=== PATIENT | male | born 1955 | race Caucasian/White ===

== ENCOUNTER 2016-11-01 11:43 | Outpatient (CLI) | payer BC ==
[~2016-11-01] VITALS: Ht 182.9 cm; Wt 97.7 kg
--- NOTE | ~2016-11-01 | HEMODYNAMI ---
PATIENT:NARA HARPER MEDICAL RECORD: [id number] : 59 LOCATION:[facility] ADMISSION DATE: 11/01/16 Generatedon:11/01/201616:03 Patient name: NARA HARPER Patient #: [id number] SSN: : 1955 Date of study: 11/01/2016 Page: Of Hemodynamic Procedure Report Patient Data Patient Demographics Procedure consent was obtained First Name: NARA Gender: Male Last Name: LEROY : 1955 [facility] Initial: OPAL Age: 61 year(s) Patient #: [id number] Race: Unknown Additional ID: [id number] Contact details Address: [address] [place] [address] [place] State: [place] City: [place] Zip code: [address] Past Medical History Allergies Allergen Reaction Date Comments Reported Penicillins 10/28/2014 Admission Admission Data Admission Date: 11/01/2016 Admission Time: 11:43 Procedure Procedure Types Cath Procedure Diagnostic Procedure LHC LHC w/Coronaries Miscellaneous Procedures Moderate Sedation up to 15 minutes Procedure Description Procedure Date Procedure Date: 11/01/2016 Procedure Start Time: 15:48 Procedure Staff Name Function Cinthia Nagel RN Nurse Man Olea MD Performing Physician Bela Jenkins RT Scrub Nir Donnelly RT Monitor Procedure Data Cath Procedure Fluoroscopy Diagnostic fluoroscopy Total fluoroscopy Time: 2.3 time: 2.3 min min Diagnostic fluoroscopy Total fluoroscopy dose: 466 dose: 466 mGy mGy Contrast Material Contrast Material Type Amount (ml) Isovue 300 55 Entry Location Entry Primary Successful Side Size Upsize Upsize Entry Closure Kennedy ccessful Closure Location (Fr) 1 (Fr) 2 (Fr) Remarks Device Remarks Radial Right 6 Fr Mechanical artery Short Compression Diagnostic catheters Device Type Used For End Catheter Placement Terumo 5Fr Quinton 110cm Coronary catheter Angiography Procedure Medications Medication Administration Route Dosage Oxygen NC 2 l/min Lidocaine 2% added to field 20 Heparin Flush Bag added to field 2 bags (1000units/500ml NS) 0.9% NaCl I.V. 100 ml/hr Versed I.V. 1 mg Fentanyl I.V. 50 mcg Versed I.V. 1 mg Fentanyl I.V. 50 mcg Versed I.V. 1 mg Fentanyl I.V. 50 mcg Radial Cocktail I.A. 1 syringe (Verapomil 2mg/Nitro 400mcg/Heparin 1500units) Versed I.V. 1 mg Fentanyl I.V. 50 mcg Hemodynamics Rest Heart Rate: 52 (bpm) Pressure Samples Time Site Value (mmHg) Purpose Heart Use Rate(bpm) 15:52 LV 149/94,98 Snapshot 62 15:52 LV 148/19,10 Snapshot 63 Gradients Valve Time Site Site Mean SEP/DFP Peak To Heart Use 1 2 (mmHg) (sec/min) Peak Rate (mmHg) (bpm) Aortic 15:53 LV AO 47 Snapshots Pre Cath Intra NCS Post Cath Vital Signs Time Heart Resp SPO2 NIBP (mmHg) Rhythm Pain Sedation Rate (ipm) (%) Status Level (bpm) 15:40:48 60 16 100 170/90(119) NSR 0 (11) 10(A) , No pain 15:45:08 56 14 94 142/85(124) NSR 0 (11) 10(A) , No pain 15:49:18 56 14 96 146/92(109) NSR 0 (11) 10(A) , No pain 15:53:34 65 17 98 110/80(100) NSR 0 (11) 9(A) , No pain 15:57:36 68 16 96 126/80(101) NSR 0 (11) 10(A) , No pain 16:00:36 59 14 97 138/82(94) NSR 0 (11) 10(A) , No pain Medications Time Medication Route Dose Verified Delivered Reason Notes Effectiveness by by 15:40:47 Oxygen NC 2 l/min Man Buffie used for Lefty Nagel RN procedure 15:40:54 Lidocaine 2% added 20ml Man Man for local to vial Lefty Olea MD anesthetic field 15:41:00 Heparin Flush added 2 bags Man Man used for Bag to Lefty Olea MD procedure (1000units/500ml field NS) 15:41:10 0.9% NaCl I.V. 100 Man Buffie Per ml/hr Lefty Nagel RN physician 15:43:21 Versed I.V. 1 mg Man Buffie for sedation Lefty Nagel RN 15:43:26 Fentanyl I.V. 50 mcg Man Buffie for sedation Lefty Nagel RN 15:47:26 Versed I.V. 1 mg Man Buffie for sedation Lefty Nagel RN 15:47:29 Fentanyl I.V. 50 mcg Man Buffie for sedation Lefty Nagel RN 15:50:27 Radial Cocktail I.A. 1 Man Man for (Verapomil syringe Lefty Olea MD vasodilation 2mg/Nitro 400mcg/Hepari 15:52:57 Versed I.V. 1 mg Man Buffie for sedation Lefty Nagel RN 15:53:02 Fentanyl I.V. 50 mcg Man Buffie for sedation Lefty Nagel RN 15:57:20 Versed I.V. 1 mg Man Man for sedation Lefty Olea MD 15:57:23 Fentanyl I.V. 50 mcg Man Man for sedation Lefty Olea MD Procedure Log Time Note 15:28:47 Nir Donnelly RT (R) (CV) sent for patient. Start room use. 15:28:49 Time tracking: Regular hours 15:28:54 Plan of Care:Hemodynamics will remain stable., Cardiac rhythm will remain stable., Comfort level will be maintained., Respiratory function will remain adequate., Patient/ family verbilizes understanding of procedure., Procedure tolerated without complication., Recovers from procedure without complications.. 15:29:02 Patient received from Pre/Post Procedure Room to [facility] 2 Alert and oriented. Tansferred to table in Supine position. 15:29:25 Correct patient and procedure confirmed by team. 15:29:27 Signed procedure consent form obtained from patient. 15:29:28 ECG and BP/O2 sat monitors applied to patient. 15:29:29 - 15:29:29 Full Disclosure recording started 15:29:33 H&P Date Dictated: 11/01/2016 H&P Addendum completed by physician on day of procedure. (MUST COMPLETE FOR ALL OUTPATIENTS). 15:29:34 Pre-op teaching completed and patient verbalized understanding. ::34 Pre-procedure instructions explained to patient. 15:29:36 Family in waiting room. 15:29:37 Patient NPO since Midnight. 15:29:39 Is the patient allergic to Iodine/contrast media? No. 15:29:44 Is patient on blood thinner?No 15:33:01 Patient diabetic? No. 15:33:02 ----Pre-sedation anethsthesia assessment.---- 15:33:02 - 15:33:05 Previous problem with sedation/anesthesia? No ? 15:33:06 Snore? Yes 15:33:07 Sleep apnea? No 15:33:08 Deviated septum? No 15:33:09 Opens mouth fully? Yes 15:33:11 Sticks out tongue? Yes 15:33:13 Airway obstruction? No ? 15:33:15 Dentures? No ? 15:33:20 Pre procedure: right dorsailis pedis pulse Doppler 15:33:24 Modified Amilcar's test Radial < 7 seconds 15:33:30 Patient pain scale 0/10 no. 15:33:43 Sharps counted by scrub and verified by R.N. 15:33:44 Alarms reviewed by R. N. 15:34:02 Right Radial & Right Groin area was prepped with chlora-prep and draped in sterile fashion 15:34:37 IV patent on arrival in left hand with 0.9% NaCl at O. 15:39:38 Vital chart was started 15:39:38 Baseline sample Acquired. 15:39:44 Rhythm: sinus rhythm 15:40:47 Oxygen 2 l/min NC was administered by Cinthia Nagel RN; used for procedure; 15:40:54 Lidocaine 2% 20ml vial added to field was administered by Man Olea MD ; for local anesthetic; 15:41:00 Heparin Flush Bag (1000units/500ml NS) 2 bags added to field was administered by Man Olea MD; used for procedure; 15:41:10 0.9% NaCl 100 ml/hr I.V. was administered by Cinthia Nagel RN; Per physician; 15:41:26 --------ALL STOP TIME OUT------ 15:41: Physician arrived 15::27 Final Timeout: patient, procedure, and site verified with staff and physician. All members of the team are in agreement. 15:41:29 Right Radial & Right Groin site verified by team. 15:41:32 Physical assessment completed. ASA score P 2 - A patient with mild systemic disease as per Man Olea MD. 15:41:35 Sedation plan: IV Moderate Sedation Versed, Fentanyl 15:42:26 Zero performed for pressure channel P1 15:43:21 Versed 1 mg I.V. was administered by Cinthia Nagel RN; for sedation; 15:43:26 Fentanyl 50 mcg I.V. was administered by Cinthia Nagel RN; for sedation; 15:43:59 Baseline sample Acquired. 15:47:26 Versed 1 mg I.V. was administered by Cinthia Nagel RN; for sedation; 15:47:29 Fentanyl 50 mcg I.V. was administered by Cinthia Nagel RN; for sedation; 15:47:51 Procedure started. 15:48:10 Local anesthetic to right radial artery with Lidocaine 2% by Man Olea MD.ADDITIONAL ACCESS 15:48:21 A 6 Fr Short sheath was inserted into the Right Radial artery 15:48:58 Zero performed for pressure channel P1 15:50:27 Radial Cocktail (Verapomil 2mg/Nitro 400mcg/Heparin 1500units) 1 syring e I.A. was administered by Man Olea MD; for vasodilation; 15:51:17 Cook 21G 4cm Radial Needle opened to sterile field. 15:51:36 A Wave [employer]rest [email or web address] 5Fr Quinton 110cm catheter was advanced over the wire and used for Coronary Angiography. 15:52:57 Versed 1 mg I.V. was administered by Cinthia Nagel RN; for sedation; 15:53:02 Fentanyl 50 mcg I.V. was administered by Cinthia Nagel RN; for sedation; 15:53:18 LV angiography performed. 15:53:46 LCA angiography performed. 15:55:50 RCA angiography performed. 15:57:12 Terumo TR Band Standard opened to sterile field. 15:57:20 Versed 1 mg I.V. was administered by Man Olea MD; for sedation; 15:57:23 Fentanyl 50 mcg I.V. was administered by Man Olea MD; for sedation; 15:57:36 Sheath removed intact; hemostasis achieved with Mechanical Compression to the Right Radial artery. 15:57:39 Procedure ended.(Physican Out) 15:58:06 Use device set Radial PCI 15:58:08 Bag Decanter opened to sterile field. 15:58:08 Acist Hand Control opened to sterile field. 15:58:08 Acist Syringe opened to sterile field. 15:58:09 Merit BasixCompak Inflation Kit opened to sterile field. 15:58:09 Medline Cath Pack opened to sterile field. 15:58:10 Acist Manifold opened to sterile field. 15:58:10 Terumo 6Fr Slender Glidesheath opened to sterile field. 15:58:11 MBrace Wrist Support opened to sterile field. 15:58:11 Tegaderm 4 x 4 opened to sterile field. 15:58:12 St Nitesh 260cm J .035 wire opened to sterile field. 15:58:38 Fluoroscopy time 02.30 minutes. 15:58:42 Fluoroscopy dose: 466 mGy 15:58:42 Flurop Dose total: 466 15:59:01 Contrast amount:Isovue 300 55ml. 15:59:03 Sharps counted by scrub and verified by R.N. 15:59:04 Insertion/operative site no bleeding no hematoma. 15:59:34 Post right radial artery:stable 15:59:36 Post Procedure Pulses reassessed and unchanged 15:59:43 Post-procedure physical assessment completed. ASA score P 2 - A patient with mild systemic disease as per Man Olea MD. 15:59:46 Post procedure rhythm: unchanged. 15:59:48 Post procedure instruction explained to patient.Patient verbalizes understanding. 15:59:49 Procedure and supply charges have been captured, reviewed, submitted an d are correct. 15:59:58 Procedure type changed to Cath procedure, Diagnostic procedure, LHC, LH C w/Coronaries, Miscellaneous Procedures, Moderate Sedation up to 15 minutes 16:02:17 Report given to Pre/Post Procedure Room. 16:02:21 Patient transfered to Pre/Post Procedure Room with Stretcher. 16:02:54 Full Disclosure recording stopped Device Usage Item Name Manufacture Quantity Catalog Hospital Part Current Minimal Lot# / Number Charge Number Stock Stock Serial# Code Lam WhiteG Cook Medical Amada [id number] 5 [id number] 4cm Radial Needle Terumo 5Fr Terumo 1 40-2395 543402 833353 369085 5 Quinton 110cm catheter Terumo TR Terumo 1 [id number] 630784 719043 308659 40 Band Standard Acist Acist 1 23173 722479 429751 553086 20 Syringe Medical Systems Inc Acist Hand Acist 1 53077 931371 817359 890827 5 Control Medical Systems Inc Bag Microtek 1 2002S 970246 11724 174123 5 DecTranspond [employer] Inc. Medline Cardinal 1 [id number] 512225 31773 340721 5 StreetSpark Formerly [facility] Merit 1 [id number] 756351 164864 070911 15 Dreamzer [employer] Medical Inflation Kit Terumo 6Fr Terumo 1 [id number] 643531 374888 271740 40 Slender Glidesheath Acist Acist 1 43942 341316 979940 542677 5 Manifold Medical Systems Inc Tegaderm 4 3M 1 1626W 775608 949105 578473 5 x 4 MBrace Advanced 1 140-0250-00 338766 60723 694606 5 Wrist V[address] Support Dynamics [address] Nitesh St Nitesh 1 209134 095076 140260 715453 30 260cm J .035 wire Signature Audit [place] Stage Time Signature Unsigned Intra-Procedure 11/01/2016 Nir 4:03:51 PM [place] RT (R) (CV) Signatures Monitor : Nir Signature : Adnrzej RT Date : Time : [id number] [place] [address]
[~2016-11-01 11:43] MED LIST: COLAZAL750 MG PO; IMURAN50 MG PO; LIPITOR40 MG PO
[2016-11-01 12:50] LABS: BASOPHILS 0.6 % (0-2); EOSINOPHILS 1.5 % (0-7); HEMATOCRIT 46.7 % (42.0-54.0); HEMOGLOBIN 15.7 g/dL (13.5-17.5); IMMATURE GRANULOCYTES 0.3 % (0-5); LYMPHOCYTES 26.5 % (15-50); MCHC 33.6 g/dL (31.0-37.0); MCV 101.1 fL (80.0-100.0); MEAN PLATELET VOLUME 9.3 fL (7.4-10.4); MONOCYTES 12.2 % (2-11); NEUTROPHILS 58.9 % (40-80); PLATELET COUNT 150 10x3/uL (130-400); RBC 4.62 10x6/uL (4.20-6.10); RDW 13.1 % (11.5-14.5); WBC 3.4 10x3/uL (4.8-10.8)
[2016-11-01 13:00] VITALS: BP 162/89; Ht 182.9 cm; Wt 97.7 kg
[2016-11-01 13:13] LABS: CALC OSMOLALITY 280 mosm/kg (275-300); CALCIUM 8.8 mg/dL (8.5-10.1); CARBON DIOXIDE 28.6 mmol/L (21.0-32.0); CHLORIDE - SERUM 106 mmol/L (98-107); CREATININE - SERUM 0.9 mg/dL (0.6-1.3); GLUCOSE 95 mg/dL (74-106); POTASSIUM - SERUM 4.1 mmol/L (3.5-5.1); SODIUM 141 mmol/L (136-145); UREA NITROGEN 13 mg/dL (7-18); eGFR NON AFRICAN AMERICAN > 90 mL/min (90-120)
--- NOTE | 2016-11-01 16:15 | NUR ---
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 REPORTS OF A CLEAN CATH WITH NO INTERVENTION. VSS WITH CHEST PAIN DENIED
--- NOTE | 2016-11-01 16:45 | NUR ---
1645 TR BAND TO R/WRIST CDI NO BLEEDING NO HEMATOMA NOTED. VSS WITH CHEST PAIN DENIED. 1730 RESTING QUIETLY NO CHANGE IN ASSESSMENT
--- NOTE | 2016-11-01 17:51 | NUR ---
REPOSITIONED TO SITTING WITH HOB UP 45 DEGREES VSS WITH CHEST PAIN DENIED. 2 CC AIR REMOVED FROM TR BAND WITH NO BLEEDING NO HEMATOMA NOTED.
--- NOTE | 2016-11-01 17:57 | NUR ---
2 CC AIR REMOVED FROM TR BAND WITH NO BLEEDING NOTED. SANDWICH AND SODA TO BEDSIDE CHEST PAIN IS DENIED
--- NOTE | 2016-11-01 18:09 | NUR ---
PIV REMOVED WITH DRESSING APPLIED. 2 CC AIR REMOVED FROM TR BAND WITH NO BLEEDING NO HEMATOMA NOTED. CHEST PAIN IS DENIED PATIENT UP TO GET DRESSED FOR DISCHARGE HOME
--- NOTE | 2016-11-01 18:10 | NUR ---
TR BAND REMOVED WITH DRESSING APPLIED NO BLEEDING NO HEMATOMA. VERBAL AND WRITTEN DISCHARGE GONE OVER WITH PATIENT AND FAMILY. LEFT VIA WC TO PARKING FOR TRANSPORT HOME CHEST PAIN DENIED NO DISTRESS NOTED
== END 2016-11-01 18:23 | disposition home or self-care (01) ==
LOC: D.CATH 11:43
PROVIDERS: Internal Medicine Cardiovascular Disease
DX: R94.39 Abnormal result of other cardiovascular function study (principal); I25.10 Atherosclerotic heart disease of native coronary artery without angina pectoris; Z01.812 Encounter for preprocedural laboratory examination

== ENCOUNTER → 2018-05-02 08:23 | Outpatient (CLI) | payer BC ==
[2016-11-01 13:00] VITALS: BMI 29.2
[2018-05-02 09:55] LABS: BASOPHILS 1.3 % (0-2); EOSINOPHILS 1.6 % (0-7); HEMATOCRIT 44.9 % (42.0-54.0); LYMPHOCYTES 29.8 % (15-50); MCH 33.9 pg (26.0-34.0); MCHC 33.4 g/dL (31.0-37.0); MCV 101.6 fL (80.0-100.0); MEAN PLATELET VOLUME 9.2 fL (7.4-10.4); MONOCYTES 14.2 % (2-11); NEUTROPHILS 53.1 % (40-80); PLATELET COUNT 180 10x3/uL (130-400); RBC 4.42 10x6/uL (4.20-6.10); RDW 13.3 % (11.5-14.5); WBC 3.1 10x3/uL (4.8-10.8)
== END | disposition home or self-care (01) ==
LOC: D.LAB 05-01 15:45
PROVIDERS: Internal Medicine Gastroenterology
DX: K50.90 Crohn's disease, unspecified, without complications (principal); Z79.899 Other long term (current) drug therapy

== ENCOUNTER → 2018-10-06 13:55 | Outpatient (CLI) | payer BC ==
[2016-11-01 13:00] VITALS: BMI 29.2
== END | disposition home or self-care (01) ==
LOC: D.HCCARDIO 13:55
PROVIDERS: ATTEND Internal Medicine Cardiovascular Disease
DX: I34.0 Nonrheumatic mitral (valve) insufficiency (principal)

== ENCOUNTER → 2019-10-25 10:18 | Outpatient (CLI) | payer OTHER ==
[2016-11-01 13:00] VITALS: BMI 29.2
== END | disposition home or self-care (01) ==
LOC: D.HCCECHO 10-22 08:30
PROVIDERS: ATTEND Internal Medicine Cardiovascular Disease
DX: I34.0 Nonrheumatic mitral (valve) insufficiency (principal)